=== PATIENT | female | born 1930 | race Two or more races ===

== ENCOUNTER 2017-04-15 13:56 | Emergency (ER) | payer OTHER, BC ==
[~2017-04-15] VITALS: Ht 147.3 cm; Wt 28.6 kg
[~2017-04-15 13:56] MED LIST: CALCIUM + VITA1 EAC2 PO; CITRATE OF MAG296 ML PO; HYDROCODON-ACE1 EAC7 PO; LASIX20 MG PO; LOPRESSOR25 MG PO; LOPRESSOR50 MG PO; MILK OF MAGNESI10 ML PO; PRILOSEC40 MG PO; PROBIOTIC1 EAC2 PO; PROTONIX40 MG PO; TYLENOL REGULA325 MG PO; VITAMIN B125000 MCG PO
[2017-04-15] MEDS ORDERED: ULTRAM50 MG PO (15:17)
[2017-04-15 16:35] VITALS: BP 144/97
== END 2017-04-15 16:38 | disposition home or self-care (01) ==
LOC: EME 13:56
DX: M25.562 Pain in left knee (principal); I10 Essential (primary) hypertension; K21.9 Gastro-esophageal reflux disease without esophagitis
CPT/HCPCS: 73560; 99281; 99284

== ENCOUNTER 2017-05-02 19:04 | Emergency (ER) | payer OTHER, BC ==
[~2017-05-02] VITALS: Ht 149.9 cm; Wt 44.2 kg
[~2017-05-02 19:04] MED LIST changes: +ULTRAM50 MG PO
[2017-05-02] MEDS ORDERED: ULTRAM50 MG PO (21:31)
[2017-05-02 21:56] VITALS: BP 120/91
== END 2017-05-02 21:57 | disposition home or self-care (01) ==
LOC: EME 19:04
DX: S82.142A Displaced bicondylar fracture of left tibia, initial encounter for closed fracture (principal); S83.412A Sprain of medial collateral ligament of left knee, initial encounter; S83.512A Sprain of anterior cruciate ligament of left knee, initial encounter; V09.20XA Pedestrian injured in traffic accident involving unspecified motor vehicles, initial encounter; K21.9 Gastro-esophageal reflux disease without esophagitis; I10 Essential (primary) hypertension
CPT/HCPCS: 99281; 99284